=== PATIENT | male | born 1955 | race Caucasian/White ===

== ENCOUNTER 2017-09-28 07:15 | Day surgery (SDC) | payer BC, OTHER ==
[~2017-09-28] VITALS: Ht 182.9 cm; Wt 81.6 kg
[2017-09-28] VITALS (9 sets, daily range): BP systolic 100–123; BP diastolic 67–94
--- NOTE | 2017-09-28 06:51 | Anethesia Preoperative Eval ---
Anesthesia Pre-op PMH/ROS General Date of Evaluation: Sep 28, 2017 Time of Evaluation: 06:49 Anesthesiologist: vicky ASA Score: ASA 3 Mallampati Score Class I : Soft palate, uvula, fauces, pillars visible Class II: Soft palate, uvula, fauces visible Class III: Soft palate, base of uvula visible Class IV: Only hard plate visible Mallampati Classification: Class II Surgeon: ange Diagnosis: dysphagia Surgical Procedure: egd/ g-tube exchange Anesthesia History: none Social History: smoking - nonsmoker Family History: no anesthesia problems Allergies: Coded Allergies: No Known Allergies (Unverified , 03/11/13) Medications: see eMAR Past Medical History Hematology/Immune: Reports: other - cancer Anesthesia Pre-op Phys. Exam Physician Exam Constitutional: NAD Neurologic: CN 2-12 intact Cardiovascular: RRR Respiratory: CTA Gastrointestinal: other - g-tube Airway Exam Mallampati Score: Class II MO: limited Neck: dereased rom to extention and lateral rotation TMD: 2fb ROM: limited Anesthesia Pre-op A/P Risk Assessment & Plan Assessment: asa3 Plan: mac Status Change Before Surgery: No Pre-Antibiotics Drug: SABRINA Miramontes Sep 28, 2017 06:51
[~2017-09-28 07:15] MED LIST: AQUAPHOR OINTM396 GM TP; Atropine Inj 1mg/10ml Syr IV PRN; DiphenhydrAMINE 50mg/ml Inj IVP PRN; FONDAPARIN7.5 MG/0.6 SQ; HYDROCODONE-ACE15 M1 PO; LR 1000ml 1,000 ML IVLG SCH; MUCINEX600 MG PO; Midazolam 2mg/2ml Inj IVP PRN; [UNRECOGNIZED DRUG - OTHER] MM; [UNRECOGNIZED DRUG - OTHER] ORAL; fentaNYL 100 mcg/2 mL IV PRN
[2017-09-28] MEDS ORDERED: LR 1000ml ONE (08:00)
[2017-09-28] MEDS ORDERED: Lidocaine 1% MPF 10mg/ml 5ml ONE (08:00)
[2017-09-28] MEDS ORDERED: Propofol 200mg/20ml IV ONE (08:00)
--- NOTE | 2017-09-28 08:22 | Pre-Procedure Note/Attestation ---
Pre-Procedure Note/Attestation Complete Prior to Procedure Planned Procedure: not applicable Procedure Narrative: EGD GT change Indications for Procedure Pre-Operative Diagnosis: dysphagia Attestation I attest that I discussed the nature of the procedure; its benefits; risks and complications; and alternatives (and the risks and benefits of such alternatives ), prior to the procedure, with the patient (or the patient's legal route sales representative). I attest that, if there was a reasonable possibility of needing a blood transfusion, the patient (or the patient's legal route sales representative) was given the [facility] standardized written summary, pursuant to the Yusuf [place] Blood Safety Act ([place] Health and Safety Code # 1645, as amended). I attest that I re-evaluated the patient just prior to the surgery and that there has been no change in the patient's H&P, except as documented below: MAGNO ROD Sep 28, 2017 08:22
--- NOTE | 2017-09-28 08:36 | Short Stay Surgery H&P ---
History of Present Illness History of Present Illness Chief Complaint see typed H&P HPI Tushar Israel is a 62 year old male who was admitted on for Dysphegia Patient History Allergies: Coded Allergies: No Known Allergies (Unverified , 03/11/13) PAST MEDICAL HISTORY: Past Surgeries: Social History: Medication History Discontinued Medications Fondaparinux Sodium (Fondaparinux Sodium), 7.5 MG SQ DAILY, (Reported) Discontinued Reason: Pt stopped taking med Guaifenesin (Mucinex), 600 MG PO BID, (Reported) Discontinued Reason: Pt stopped taking med Hydrocodone Bit/Acetaminophen (Hydrocodone-Acetaminophen Soln), 15 ML PO NEEDED, (Reported) Discontinued Reason: Pt stopped taking med Mineral Oil/Hydrophil Petrolat (Aquaphor Ointment), 396 GM TP NEEDED, ( Reported) Discontinued Reason: Pt stopped taking med Mucositis & Stomatitis Combo 2 (Episil), 10 ML MM NEEDED, (Reported) Discontinued Reason: Pt stopped taking med [Mathis Solution], 1 TSP ORAL PRN, (Reported) Discontinued Reason: Pt stopped taking med Physical Exam Vital Signs Last Vital Signs Date Time Temp Pulse Resp B/P (MAP) Pulse Ox O2 Delivery O2 Flow Rate FiO2 09/28/17 07:51 97.9 66 18 106/81 95 Room Air Plan Attestation Are the patient's medical conditions optimized for surgery? MAGNO ROD Sep 28, 2017 08:36
--- NOTE | 2017-09-28 08:37 | Endoscopy Procedure Note ---
Endoscopy Procedure Note Indication for Procedure: dysphagia Procedures Performed: EGD, other Operative Findings/Diagnosis: HH x 2-3 cm, GT changed Specimen: none Pt Tolerated Procedure Well: Yes Estimated Blood Loss: none Anesthesiologist: Marques moody Anesthesia: moderate sedation Medication Given: see anesthesia record Implant(s) used?: No 50 yrs or older w/o bx or poly: Not Applicable 10yrs. F/U not recommended: Not Applicable If not recommended, why?: MAGNO ROD Sep 28, 2017 08:37
--- NOTE | 2017-09-28 08:39 | Brief Operative Note ---
Immediate Post Operative Note Operative Note Chief Complaint: dysphagia Pre-op Diagnosis: dysphagia Procedure: EGD/ Change GT Post-op Diagnosis: HH, GT changed Surgeon: ange Anesthesiologist: Marques Grayson Anesthesia: MAC Specimen: none Complications: none Condition: stable Fluids: see record Estimated Blood Loss: none Drains: none Implant(s) used?: No MAGNO ROD Sep 28, 2017 08:39
--- NOTE | 2017-09-28 10:17 | Immediate Post-Op Evaluation ---
Immediate Post-Op Evalulation Immediate Post-Op Evalulation Procedure: egd Date of Evaluation: Sep 28, 2017 Time of Evaluation: 09:01 IV Fluids: 400ml lr Blood Products: none Estimated Blood Loss: negligible Blood Pressure Systolic: 123 Blood Pressure Diastolic: 84 Pulse Rate: 91 Respiratory Rate: 18 O2 Sat by Pulse Oximetry: 99 Temperature (Fahrenheit): 97.0 Pain Score (1-10): 0 Nausea: No Vomiting: No Complications none Patient Status: awake, reacts, patent Hydration Status: adequate Drug: SABRINA Miramontes Sep 28, 2017 10:17
--- NOTE | 2017-09-28 10:23 | 48 Hour Post Anesthesia Eval ---
Post Anesthesia Evaluation Procedure: egd Date of Evaluation: Sep 28, 2017 Time of Evaluation: 10:17 Blood Pressure Systolic: 122 0: 94 Pulse Rate: 95 Respiratory Rate: 18 Temperature (Fahrenheit): 97.5 O2 Sat by Pulse Oximetry: 100 Airway: patent Nausea: No Vomiting: No Pain Intensity: 0 Hydration Status: adequate Cardiopulmonary Status: stable Mental Status/LOC: patient returned to baseline Post-Anesthesia Complications: none Follow-up care needed: N/A SABRINA TATE Sep 28, 2017 10:23
--- NOTE | 2017-09-28 18:15 | Operative Note - Dictated ---
DATE OF OPERATION: 09/28/2017 GASTROENTEROLOGY PROCEDURE REPORT PROCEDURE: Upper endoscopy with gastrostomy tube removal and exchange. SURGEON: Yunior Mckinley M.D. ANESTHESIA: Please see the separate anesthesiologist notes for details. PRE-ENDOSCOPIC DIAGNOSIS: Dysphagia with dysfunctional old gastrostomy catheter. POST-ENDOSCOPIC DIAGNOSES: 1. A 3-cm hiatal hernia. 2. Gastrostomy tube was removed and replaced with another gastrostomy catheter under direct vision. 3. No ulcers or other upper gastrointestinal pathology was identified. DESCRIPTION OF PROCEDURE: The procedure, its risks, indications, alternatives, and possible complications were explained and informed consent was obtained. The patient was then sedated and a diagnostic upper endoscope was introduced through the oropharynx and advanced to the duodenum. The endoscope was then gradually withdrawn and the mucosa examined carefully. The previously placed gastrostomy catheter was removed under direct vision and replaced with a funnel-tip gastrostomy catheter using the standard pull technique. The patient was sent to recovery in good condition. COMPLICATIONS: None. RECOMMENDATIONS: 1. Resume tube feeding. 2. Gastrostomy tube care. Yunior Mckinley M.D. DR: AMY JOB#: [id number] CC:
== END 2017-09-28 10:05 | disposition home or self-care (01) ==
LOC: GAS 07:15
DX: K94.23 Gastrostomy malfunction (principal); R13.10 Dysphagia, unspecified; K44.9 Diaphragmatic hernia without obstruction or gangrene; Z85.9 Personal history of malignant neoplasm, unspecified
CPT/HCPCS: 43246; J2704; J7120; 94003; 94150

== ENCOUNTER 2019-10-17 07:32 | Day surgery (SDC) | payer BC ==
[~2019-10-17] VITALS: Ht 182.9 cm; Wt 77.1 kg
[2019-10-17] VITALS (8 sets, daily range): BP systolic 96–119; BP diastolic 69–84
--- NOTE | 2019-10-17 07:16 | Anethesia Preoperative Eval ---
Anesthesia Pre-op PMH/ROS General Date of Evaluation: Oct 17, 2019 Time of Evaluation: 07:14 Anesthesiologist: paddy ASA Score: ASA 3 Mallampati Score Class I : Soft palate, uvula, fauces, pillars visible Class II: Soft palate, uvula, fauces visible Class III: Soft palate, base of uvula visible Class IV: Only hard plate visible Mallampati Classification: Class II Surgeon: ange Diagnosis: dysphagia Surgical Procedure: egd w/ g-tube change Anesthesia History: none Social History: smoking - nonsmoker Family History: no anesthesia problems Allergies: Coded Allergies: No Known Allergies (Unverified , 10/17/19) Medications: see eMAR Patient NPO?: Yes Past Medical History Gastrointestinal/Genitourinary: Reports: other - peg placement HEENT: Reports: other - throat cancer, decreased visual acuity PSxH Narrative: tonsillectomy, peg placement Anesthesia Pre-op Phys. Exam Physician Exam Last Vital Signs Date Time Temp Pulse Resp B/P (MAP) Pulse Ox O2 Delivery O2 Flow Rate FiO2 10/17/19 08:00 Room Air 10/17/19 07:57 97.8 72 18 115/84 97 Constitutional: NAD Neurologic: CN 2-12 intact Cardiovascular: RRR Respiratory: CTA Gastrointestinal: other - g-tube Airway Exam Mallampati Score: Class II MO: limited Neck: flexible TMD: 2fb ROM: limited Anesthesia Pre-op A/P Risk Assessment & Plan Assessment: asa3 Plan: mac Status Change Before Surgery: No Pre-Antibiotics Drug: Sagrario Oakley MD Oct 17, 2019 07:16
[~2019-10-17 07:32] MED LIST changes: +LR 1000ml 1,000 ML IV SCH
[2019-10-17] MEDS ORDERED: NKM (07:59)
[2019-10-17] MEDS ORDERED: LR 1000ml ONE (08:30)
[2019-10-17] MEDS ORDERED: Lidocaine 1% MPF 10mg/ml 5ml ONE (08:30)
[2019-10-17] MEDS ORDERED: Propofol 200mg/20ml IV ONE (08:30)
--- NOTE | 2019-10-17 09:13 | Pre-Procedure Note/Attestation ---
Pre-Procedure Note/Attestation Complete Prior to Procedure Planned Procedure: not applicable Procedure Narrative: EGD with GT change Indications for Procedure Pre-Operative Diagnosis: dysphagia Attestation I attest that I discussed the nature of the procedure; its benefits; risks and complications; and alternatives (and the risks and benefits of such alternatives ), prior to the procedure, with the patient (or the patient's legal customer response representative). I attest that, if there was a reasonable possibility of needing a blood transfusion, the patient (or the patient's legal customer response representative) was given the [facility] standardized written summary, pursuant to the Yusuf [place] Blood Safety Act ([place] Health and Safety Code # 1645, as amended). I attest that I re-evaluated the patient just prior to the surgery and that there has been no change in the patient's H&P, except as documented below: Yunior Mckinley MD Oct 17, 2019 09:13
--- NOTE | 2019-10-17 09:13 | Short Stay Surgery H&P ---
History of Present Illness History of Present Illness Chief Complaint See H&P attached HPI Tushar Israel is a 64 year old male who was admitted on for Dysphagia Patient History Allergies: Coded Allergies: No Known Allergies (Unverified , 10/17/19) Medication History Scheduled No Known Medications* (NKM - No Known Medications*), 0 ., (Reported) Physical Exam Vital Signs Last Vital Signs Date Time Temp Pulse Resp B/P (MAP) Pulse Ox O2 Delivery O2 Flow Rate FiO2 10/17/19 08:00 Room Air 10/17/19 07:57 97.8 72 18 115/84 97 Plan Attestation Are the patient's medical conditions optimized for surgery? Yunior Mckinley MD Oct 17, 2019 09:13
--- NOTE | 2019-10-17 09:28 | Endoscopy Procedure Note ---
Endoscopy Procedure Note General Indication for Procedure: dysphagia Procedures Performed: EGD, other Operative Findings/Diagnosis: GT changed Specimen: yes Pt Tolerated Procedure Well: Yes Estimated Blood Loss: none Anesthesia Anesthesiologist: Marques Grayson Anesthesia: MAC Medications Medication Given: see anesthesia record Inserted Devices Implant(s) used?: No GI Core Measures 50 yrs or older w/o bx or poly: Not Applicable 10yrs. F/U recommended: Not Applicable Yunior Mckinley MD Oct 17, 2019 09:28
--- NOTE | 2019-10-17 09:32 | Brief Operative Note ---
Immediate Post Operative Note Operative Note Chief Complaint: dysphagia Pre-op Diagnosis: dysphagia Procedure: EGD GT change Post-op Diagnosis: same Specimen: none Complications: none Condition: stable Fluids: per aneshesia Implant(s) used?: No Yunior Mckinley MD Oct 17, 2019 09:32
--- NOTE | 2019-10-17 09:44 | Immediate Post-Op Evaluation ---
Immediate Post-Op Evalulation Immediate Post-Op Evalulation Procedure: egd w/g-tube change Date of Evaluation: Oct 17, 2019 Time of Evaluation: 09:44 IV Fluids: 300ml lr Blood Products: none Estimated Blood Loss: negligible Blood Pressure Systolic: 96 Blood Pressure Diastolic: 69 Pulse Rate: 76 Respiratory Rate: 18 O2 Sat by Pulse Oximetry: 100 Temperature (Fahrenheit): 97.0 Pain Score (1-10): 0 Nausea: No Vomiting: No Complications none Patient Status: awake, reacts, patent Hydration Status: adequate Drug: Sagrario Oakley MD Oct 17, 2019 09:44
--- NOTE | 2019-10-17 09:46 | 48 Hour Post Anesthesia Eval ---
Post Anesthesia Evaluation Procedure: egd w/g-tube change Date of Evaluation: Oct 17, 2019 Time of Evaluation: 09:46 Blood Pressure Systolic: 98 0: 78 Pulse Rate: 73 Respiratory Rate: 18 Temperature (Fahrenheit): 97.0 O2 Sat by Pulse Oximetry: 100 Airway: patent Nausea: No Vomiting: No Pain Intensity: 0 Hydration Status: adequate Cardiopulmonary Status: stable Mental Status/LOC: patient returned to baseline Post-Anesthesia Complications: none Follow-up care needed: N/A Sagrario Gomez MD Oct 17, 2019 09:46
--- NOTE | 2019-10-17 16:15 | Operative Note - Dictated ---
DATE OF OPERATION: 10/17/2019 GASTROENTEROLOGY PROCEDURE REPORT PROCEDURE: Upper gastroendoscopy with gastrostomy tube change. SURGEON: Yunior Mckinley M.D. ANESTHESIA: Please see the separate anesthesiologist notes for details. PRE-ENDOSCOPIC DIAGNOSIS: Dysphagia. POST-ENDOSCOPIC DIAGNOSES: 1. Status post endoscopy with gastrostomy tube removal followed by gastrostomy tube replacement. 2. Normal upper endoscopy otherwise. DESCRIPTION OF PROCEDURE: The procedure, its risks, indications, alternatives, and possible complications were explained to the patient and informed consent was obtained. The patient was then sedated in the supine position. A diagnostic upper endoscope was used to open into oropharynx and advanced to the duodenum. The mucosa were examined and there were normal. Previously placed gastrostomy catheter was removed under direct observation by traction and a guidewire was used in replacement of gastrostomy catheter using the standard pull technique. Position was verified endoscopically. The endoscope was removed and the patient was sent to recovery in good condition. COMPLICATIONS: None. RECOMMENDATIONS: 1. Resume tube feedings. 2. Follow up with primary physician. Yunior Mckinley M.D. DR: DAVINA JOB#: [id number] CC: Yunior Mckinley M.D.; Fax#: [phone]
== END 2019-10-17 10:25 | disposition home or self-care (01) ==
LOC: GAS 07:32
DX: R13.10 Dysphagia, unspecified (principal); Z85.818 Personal history of malignant neoplasm of other sites of lip, oral cavity, and pharynx
CPT/HCPCS: 43246; J2704; J7120; 94003; 94150